=== PATIENT | female | born 1990 | race American Indian/Alaskan Native ===

== ENCOUNTER 2018-03-28 10:37 | Emergency (ER) | payer SELFPAY ==
[2018-03-28] MEDS ORDERED: FLEXERIL PO ONE (12:17)
[2018-03-28] MEDS ORDERED: ULTRAM PO ONE (12:17)
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
[2018-03-28 12:25] LABS: Bilirubin,Urine NEG (Negative); Blood,Urine LG (Negative); Color,Urine Yellow (Yellow); HCG Qualitative,Urine Positive (Negative); Mucus,Urine FEW /HPF; Protein,Urine <15 mg/dL mg/dL (Negative); Urobilinogen,Urine < 2.0 mg/dL (<2.0)
[2018-03-28 13:03] VITALS: BP 119/76
== END 2018-03-28 13:02 | disposition home or self-care (01) ==
LOC: ED 10:37
DX: S29.012A Strain of muscle and tendon of back wall of thorax, initial encounter (principal); S29.011A Strain of muscle and tendon of front wall of thorax, initial encounter; Z33.1 Pregnant state, incidental; V47.5XXA Car driver injured in collision with fixed or stationary object in traffic accident, initial encounter; Y93.89 Activity, other specified; Y92.89 Other specified places as the place of occurrence of the external cause; Y99.8 Other external cause status
CPT/HCPCS: 81001; 81025; 99283